=== PATIENT | male | born 2000 | race African-American/Black ===

== ENCOUNTER 2019-06-02 23:08 | Emergency (ER) | payer SELFPAY ==
[2019-06-03 00:04] LABS: ABSOLUTE BASOPHILS # (AUTO) 0.1 10^3/uL (0.0-0.2); TOTAL CELLS COUNTED % (AUTO) 100 %
[2019-06-03 00:11] LABS: APPEARANCE,URINE CLEAR; BILIRUBIN,URINE NEGATIVE (NEGATIVE); COLOR,URINE YELLOW; GLUCOSE, URINE NEGATIVE (NEGATIVE); KETONES,URINE NEGATIVE (NEGATIVE); LEUKOCYTE ESTERASE,URINE NEGATIVE (NEGATIVE); NITRITE,URINE NEGATIVE (NEGATIVE); PROTEIN,URINE 30 mg/dL (NEGATIVE); URINE SPECIFIC GRAVITY 1.033
[2019-06-03 00:14] LABS: ABSOLUTE EOSINOPHILS # (AUTO) 0.1 10^3/uL (0.0-0.6); ABSOLUTE LYMPHOCYTES (AUTO) 2.6 10^3/uL (0.5-4.7); ABSOLUTE MONOCYTES (AUTO) 0.8 10^3/uL (0.1-1.4); ABSOLUTE NEUT (AUTO) 3.2 10^3/uL (1.7-8.2); BASOPHILS % (AUTO) 0.9 % (0-2); HEMATOCRIT 45.2 % (37.9-51.0); HEMOGLOBIN 15.2 g/dL (13.5-17.0); LYMPHOCYTES % (AUTO) 38.3 % (13-45); MEAN CORPUSCULAR HEMOGLOBIN 30.7 pg (27.0-33.4); MEAN CORPUSCULAR HGB CONC 33.6 g/dL (32.0-36.0); MEAN CORPUSCULAR VOLUME 92 fl (80-97); PLATELET COUNT 287 10^3/uL (150-450); RED BLOOD COUNT 4.94 10^6/uL (4.35-5.55); RED CELL DISTRIBUTION WIDTH 12.6 % (11.5-14.0); SEGMENTED NEUTROPHILS % (AUTO) 46.8 % (42-78); WHITE BLOOD COUNT 6.8 10^3/uL (4.0-10.5)
[2019-06-03 00:21] LABS: ALBUMIN 4.7 g/dL (3.5-5.0); ALKALINE PHOSPHATASE 91 U/L (38-126); ANION GAP 13 (5-19); ASPARTATE AMINO TRANSFERASE 29 U/L (17-59); BILIRUBIN,DIRECT 0.3 mg/dL (0.0-0.4); BILIRUBIN,TOTAL 0.7 mg/dL (0.2-1.3); BLOOD UREA NITROGEN 19 mg/dL (7-20); CARBON DIOXIDE 28 mmol/L (22-30); CHLORIDE 101 mmol/L (98-107); GLUCOSE 79 mg/dL (75-110); POTASSIUM 3.7 mmol/L (3.6-5.0); TOTAL PROTEIN 7.7 g/dL (6.3-8.2)
--- NOTE | 2019-06-03 03:33 | ER Document Report ---
ED GI/ - General Chief Complaint: Flank Pain Stated Complaint: FLANK PAIN Time Seen by Provider: 06/03/19 03:32 Mode of Arrival: Ambulatory - Patient stated [place] and he noted that he injured his right lower rib cage. At that time he did not hurt as much as over days of time pain worsened in the left lower rib cage area and worse with movement particularly walking. TRAVEL OUTSIDE OF THE [place] IN LAST 30 DAYS: No - HPI Onset: Other - Patient injured his left rib cage 10 days ago in the gymnasium. At that time pain was not as intense as it occurred later as the week went by. Denied any loss of consciousness head injury neck injury. - Related Data Allergies/Adverse Reactions: No Known Allergies Allergy (Verified 06/03/19 02:28) Past Medical History - Social History Smoking Status: Never Smoker Chew tobacco use (# tins/day): No Frequency of alcohol use: None Drug Abuse: None Lives with: Alone Family History: Reviewed & Not Pertinent Patient has suicidal ideation: No Patient has homicidal ideation: No - Immunizations Immunizations up to date: Yes Physical Exam - Vital signs Vitals: Temp Pulse Resp BP Pulse Ox 98.2 F 74 16 127/78 H 99 06/02/19 23:15 06/02/19 23:15 06/02/19 23:15 06/02/19 23:15 06/02/19 23:15 Interpretation: Normal - General General appearance: Appears well, Alert - HEENT Head: Normocephalic, Atraumatic Eyes: Normal Pupils: PERRL - Respiratory Respiratory status: No respiratory distress Chest status: Nontender Breath sounds: Normal Chest palpation: Normal, Tender - Tender to palpation in the anterior left lower rib cage margin. No crepitus noted no deformity noted. - Cardiovascular Rhythm: Regular Heart sounds: Normal auscultation Murmur: No - Abdominal Inspection: Normal Distension: No distension Bowel sounds: Normal Tenderness: Nontender Organomegaly: No organomegaly - Back Back: Normal, Nontender - Extremities General upper extremity: Normal inspection, Nontender, Normal color, Normal ROM, Normal temperature General lower extremity: Normal inspection, Nontender, Normal color, Normal ROM, Normal temperature, Normal weight bearing. No: Nithya's sign - Neurological Neuro grossly intact: Yes Cognition: Normal Orientation: AAOx4 Jagjit Coma Scale Eye Opening: Spontaneous Jagjit Coma Scale Verbal: Oriented Jagjit Coma Scale Motor: Obeys Commands Jagjit Coma Scale Total: 15 Speech: Normal Motor strength normal: LUE, RUE, LLE, RLE Sensory: Normal - Psychological Associated symptoms: Normal affect, Normal mood - Skin Skin Temperature: Warm Skin Moisture: Dry Skin Color: Normal Course - Vital Signs Vital signs: Temp Pulse Resp BP Pulse Ox 98.1 F 68 18 122/54 L 100 06/03/19 06:09 06/03/19 06:09 06/03/19 06:09 06/03/19 06:09 06/03/19 06:09 - Laboratory Result Diagrams: 06/02/19 23:49 06/02/19 23:49 Laboratory results interpreted by me: 06/02/19 23:49 Urine Protein 30 H Urine Urobilinogen 2.0 H - Diagnostic Test Radiology reviewed: Image reviewed, Reports reviewed - Chest x-ray did not disclose any pneumothorax and no rib fracture was seen no acute process Discharge - Discharge Clinical Impression: Contusion of rib on left side Qualifiers: Encounter type: initial encounter Qualified Code(s): S20.212A - Contusion of left front wall of thorax, initial encounter Disposition: HOME, SELF-CARE Additional Instructions: Rib Contusion You have been diagnosed as having bruised ribs. It will usually take a few weeks for these injured ribs to heal. You should cough or take a deep breath at least every hour or two to prevent lung complications. You should not engage in any strenuous physical activity until released by your physician. The usual rule is "if it hurts, don't do it." Return if you develop any of the following: (1) Fever or chills. (2) Persistent cough, coughing up blood, or shortness of breath. (3) Increasing pain. (4) Weakness, lightheadedness, or fainting. Contusion Your injury has resulted in a contusion -- a crushing of the deep tissues. No injury to important structures was detected during the physician's exam. Contusions vary in the amount of pain they cause, and in the length of time req uired for healing. Typically, the area will become bruised, and will remain painful to touch for two or three weeks. However, most patients are back to working and playing within a few days. After the initial period of rest and cold-packs, your symptoms (together with the doctor's recommendations) will determine how rapidly you can get back to full activity. Usually this means "do what feels okay, but don't do things that hurt." If re-examination was recommended, it's important to follow up as instructed. Call the doctor or return any time if pain increases, if swelling becomes severe, if you develop numbness or weakness in an injured extremity, or if any other alarming symptoms occur. Prescriptions: Ibuprofen [Ibu] 800 mg PO Q8 PRN 10 Days #30 tablet PRN Reason: Forms: Return to Work
--- NOTE | 2019-06-03 03:39 | ER Document Report ---
ED General - General Chief Complaint: Flank Pain Stated Complaint: FLANK PAIN Time Seen by Provider: 06/03/19 03:32 Mode of Arrival: Ambulatory Information source: Patient TRAVEL OUTSIDE OF THE [place] IN LAST 30 DAYS: No - HPI Patient complains to provider of: Left anterior lower rib pain Onset: Other - 10 days ago. Patient states [place] exercise he remembered that he had injured his left lower rib cage area. However he did not hurt as much as he did later in the week. Because of the persistence of pain in that area he comes to the emergency department for evaluation. Onset/Duration: Gradual, Intermittent, Waxing and waning, Worse Quality of pain: Sharp, Stabbing Severity: Moderate Associated symptoms: Other - Chest wall pain over the anterior lateral lower left rib cage Exacerbated by: Movement, Walking Relieved by: Remaining still Similar symptoms previously: No Recently seen / treated by doctor: No - Related Data Allergies/Adverse Reactions: No Known Allergies Allergy (Verified 06/03/19 02:28) Past Medical History - Social History Smoking Status: Never Smoker Chew tobacco use (# tins/day): No Frequency of alcohol use: None Drug Abuse: None Lives with: Alone Family History: Reviewed & Not Pertinent Patient has suicidal ideation: No Patient has homicidal ideation: No - Immunizations Immunizations up to date: Yes Physical Exam - Vital signs Vitals: Temp Pulse Resp BP Pulse Ox 98.2 F 74 16 127/78 H 99 06/02/19 23:15 06/02/19 23:15 06/02/19 23:15 06/02/19 23:15 06/02/19 23:15 Course - Re-evaluation Re-evalutation: 06/03/19 07:35 Discussed with patient x-ray and laboratory results. Explained to patient that they had a contusion to his left lower rib cage without any collapse of lung or any rib fractures seen. Advised patient that he was going be placed on ibuprofen 800 mg 3 times daily as needed pain. Patient requested cane support so that he could walk in a improved when. I suggested patient not use any ancillary support to walk and that he should take the ibuprofen and control his pain so he could walk easier. - Vital Signs Vital signs: Temp Pulse Resp BP Pulse Ox 98.1 F 68 18 122/54 L 100 06/03/19 06:09 12/30/19 06:09 06/03/19 06:09 06/03/19 06:09 06/03/19 06:09 - Laboratory Result Diagrams: 06/02/19 23:49 06/02/19 23:49 Laboratory results interpreted by me: 06/02/19 23:49 Urine Protein 30 H Urine Urobilinogen 2.0 H - Diagnostic Test Radiology reviewed: Image reviewed, Reports reviewed Discharge - Discharge Clinical Impression: Contusion of rib on left side Condition: Stable Disposition: HOME, SELF-CARE Additional Instructions: Rib Contusion You have been diagnosed as having bruised ribs. It will usually take a few weeks for these injured ribs to heal. You should cough or take a deep breath at least every hour or two to prevent lung complications. You should not engage in any strenuous physical activity until released by your physician. The usual rule is "if it hurts, do n't do it." Return if you develop any of the following: (1) Fever or chills. (2) Persistent cough, coughing up blood, or shortness of breath. (3) Increasing pain. (4) Weakness, lightheadedness, or fainting. Contusion Your injury has resulted in a contusion -- a crushing of the deep tissues. No injury to important structures was detected during the physician's exam. Contusions vary in the amount of pain they cause, and in the length of time required for healing. Typically, the area will become bruised, and will remain painful to touch for two or three weeks. However, most patients are back to working and playing within a few days. After the initial period of rest and cold-packs, your symptoms (together with the doctor's recommendations) will determine how rapidly you can get back to full activity. Usually this means "do what feels okay, but don't do things that hurt." If re-examination was recommended, it's important to follow up as instructed. Call the doctor or return any time if pain increases, if swelling becomes severe, if you develop numbness or weakness in an injured extremity, or if any other alarming symptoms occur. Prescriptions: Ibuprofen [Ibu] 800 mg PO Q8 PRN 10 Days #30 tablet PRN Reason: Forms: Return to Work
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
[2019-06-03] MEDS ORDERED: IBUPROFEN 800 MG TABLET PO ONE (06:03)
[2019-06-03 06:11] VITALS: BP 122/54
== END 2019-06-03 06:16 | disposition home or self-care (01) ==
LOC: ER 23:08
DX: S20.212A Contusion of left front wall of thorax, initial encounter (principal); R10.9 Unspecified abdominal pain; R07.81 Pleurodynia; X58.XXXA Exposure to other specified factors, initial encounter; Y93.A9 Activity, other involving cardiorespiratory exercise; Y92.39 Other specified sports and athletic area as the place of occurrence of the external cause
CPT/HCPCS: 36415; 80053; 81001; 83690; 85025; 99283

== ENCOUNTER 2019-07-20 23:29 | Emergency (ER) | payer OTHER ==
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
[2019-07-21] MEDS ORDERED: TRAMADOL HCL 50 MG TABLET PO ONE (03:09)
[2019-07-21] MEDS ORDERED: NAPROXEN 250 MG TABLET PO ONE (03:09)
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
[2019-07-21 03:45] VITALS: BP 118/53
== END 2019-07-21 03:50 | disposition home or self-care (01) ==
LOC: ER 23:29
DX: S20.212A Contusion of left front wall of thorax, initial encounter (principal); R07.81 Pleurodynia; R07.89 Other chest pain; Y08.89XA Assault by other specified means, initial encounter
CPT/HCPCS: 99284